=== PATIENT | female | born 1970 | race African-American/Black ===

== ENCOUNTER 2016-11-30 18:25 | Emergency (ER) | payer BC, OTHER ==
[~2016-11-30] VITALS: Ht 167.6 cm; Wt 136.1 kg
--- NOTE | 2016-11-30 19:19 | ED Lower Extremity ---
General Chief Complaint: Lower Extremity Stated Complaint: LT LEG PAIN Nursing Triage Note: PT CO OF L CALF AREA SWELLING AND TENDERNESS FROM DOG BITE ON 11/15/16. PT WAS SEEN BY [facility] ON 11/15/16. Nursing Sepsis Screen: No Definite Risk History of Present Illness Time seen by provider: 19:12 Initial Comments Patient presents to ER with a chief complaint of pain and swelling her left lower leg. She says she had a dog bite on November 15, 2016. She was treated with antibiotics by her doctor and animal control collected the dog and took him into custody for a few weeks. She has not heard anything different about the dog. She finished her antibiotics and was doing well before the past 1-2 days she's had progressively worsening pain and swelling in her left leg especially on the left lateral side. She is not having problems with numbness or tingling or inability to walk or have falls. She is not having any shortness of breath or heart racing. Pain is 9 out of 10 and she has used 3 Aleve tablets just prior to coming in. She is not feeling Aleve is helping. Allergies and Home Medications Allergies Coded Allergies: No Known Drug Allergies (Unverified , 11/30/16) Home Medications No Active Prescriptions or Reported Meds Constitutional: No chills, No diaphoresis, No fever Respiratory: No cough, No dyspnea on exertion, No short of breath Cardiovascular: No chest pain, No palpitations Gastrointestinal: No constipation, No diarrhea, No nausea, No vomiting Genitourinary: No discharge, No dysuria Musculoskeletal: see HPI, No joint swelling Skin: No pruritus, No rash Other Left calf measures 59 cm and right calf measures 55 cm in greatest circumference Past Znjrqwl-Jmdivc-Dfymcs Hx Patient Social History Alcohol Use: Occasionally Uses Recreational Drug Use: No Smoking Status: Current Everyday Smoker Type Used: Cigarettes Recent Foreign Travel: No Contact w/Someone Who Travel: No Recent Infectious Disease Expo: No Recent Hopitalizations: No Immunizations Up To Date Tetanus Booster (TDap): Less than 5yrs Physical Exam Vital Signs Vital Sign - Last 12Hours 11/30/16 18:50 Temp 97.2 Pulse 73 Resp 18 B/P (MAP) 146/83 Pulse Ox 99 Capillary Refill : Less Than 3 Seconds General Appearance: WD/WN, mild distress HEENT: PERRL/EOMI, pharynx normal Cardiovascular: normal peripheral pulses, regular rate, rhythm Respiratory: chest non-tender, lungs clear Gastrointestinal: non tender, soft Legs: right leg non-tender, right leg normal inspection, right leg normal range of motion, right leg no evidence of injury, left leg pain, left leg soft tissue tenderness, left leg swelling Knees: bilateral knee non-tender, bilateral knee normal inspection, bilateral knee normal range of motion Ankles: bilateral ankle non-tender, bilateral ankle normal inspection, bilateral ankle normal range of motion, bilateral ankle no evidence of injury Neurologic/Tendon: normal sensation, normal motor functions, normal tendon functions, responds to pain Neurologic/Psychiatric: no motor/sensory deficits, alert, oriented x 3 Skin: normal color, warm/dry, other (dry healing lesion from where the dog bite without any palpable induration or drainage. On the left calf laterally) Progress/Results/Core Measures Results/Orders My Orders Orders - LUIS ENRIQUE ARREAGA Us Venous Lower Ext Lt (11/30/16 19:20) Fentanyl Injection (Sublimaze Injection (11/30/16 19:20) Vital Signs/I&O Vital Sign - Last 12Hours 11/30/16 18:50 Temp 97.2 Pulse 73 Resp 18 B/P (MAP) 146/83 Pulse Ox 99 Blood Pressure Mean: 104 Progress Note : Time: 19:25 Progress Note Cellulitis versus DVT. We'll obtain ultrasound get her some pain control and extend her antibiotics another week. She should start probiotics. Diagnostic Imaging Diagonstic Imaging: Ultrasound Plain Films/CT/US/NM/MRI: leg (left lower) Comments VIA [facility]. [place], [place] NAME: CHINA ELLIOTT [facility] REC#: [id number] PT STATUS: REG ER : 1970 PHYSICIAN: LUIS ENRIQUE ARREAGA MD ADMIT DATE: 11/30/16/ER Draft Date of Exam:11/30/16 US VENOUS LOWER EXT LT PROCEDURE: US left lower extremity venous. TECHNIQUE: Multiple real-time grayscale images were obtained over the left lower extremity in various projections. Additional duplex Doppler and color Doppler images were also obtained. INDICATION: Left leg pain. The femoropopliteal deep venous system widely patent. No deep or superficial thrombi identified. IMPRESSION: Negative Dictated on workstation # [id number] Dict: 11/30/162023 Trans: 11/30/162034 PENDING SALE TO [facility] [id number] Interpreted by: SHUN MAYA Electronically signed by: Reviewed: Reviewed by Me Departure Impression Impression: Primary Impression: Left leg pain Disposition: 01 HOME, SELF-CARE Condition: Improved Departure-Patient Inst. Decision time for Depature: 21:41 Referrals: NO,LOCAL PHYSICIAN (PCP/Family) Primary Care Physician Patient Instructions: Cellulitis (Skin Infection), Adult (DC) Add. Discharge Instructions: You do not have a clot in your leg. However you may still have residual cellulitis so we will extend your antibiotics by another 5 days. Follow-up with your primary care physician tomorrow or the following day if it's not getting better. If you're having new symptoms such as fever or shortness of breath you should return to the ER. Keep the leg elevated above the level of your heart when possible. Apply ice to the swelling parts to control your pain. Use ibuprofen 800 mg by mouth every 8 hours as needed. Use Tylenol 1000 mg every 8 hours as needed. If all these measures does not control your pain then you may take one tablet of the hydrocodone every 6 hours as needed to control your pain. All discharge instructions reviewed with patient and/or family. Voiced understanding. Scripts Cephalexin (Keflex) 500 Mg Capsule 500 MG PO QID for 5 Days, #20 CAP 0 Refills Prov: LUIS ENRIQUE ARREAGA 11/30/16 Hydrocodone/Acetaminophen (Hydrocodon -Acetaminophen 5-325) 1 Each Tablet 1 EACH PO Q6H Y for BREAKTHROUGH PAIN, #10 TAB 0 Refills Prov: LUIS ENRIQUE ARREAGA 11/30/16 LUIS ENRIQUE ARREAGA Nov 30, 2016 19:19
[2016-11-30] MEDS ORDERED: fentaNYL INJECTION 100 MCG/2 ML AMP INJ STA (19:20)
--- NOTE | 2016-11-30 20:35 | Diagnostic Imaging Report ---
PROCEDURE: US left lower extremity venous. TECHNIQUE: Multiple real-time grayscale images were obtained over the left lower extremity in various projections. Additional duplex Doppler and color Doppler images were also obtained. INDICATION: Left leg pain. The femoropopliteal deep venous system widely patent. No deep or superficial thrombi identified. IMPRESSION: Negative Dictated by: Dictated on workstation # [id number]
[2016-11-30] MEDS ORDERED: HYDR-3812 PO (21:45)
[2016-11-30] MEDS ORDERED: CEPH-507 PO (21:45)
[2016-11-30] MEDS ORDERED: RX-CEPHALEXIN (KEFLEX) 250 MG CAP PPK#4 PO STA (21:46)
[2016-11-30 21:54] VITALS: BP 131/71
--- OUTSIDE RECORDS SUMMARY | 2016-12-11 11:35 | XMS REPORT | Continuity of Care Document ---
Author Author [facility] Address Unknown Phone Unavailable Allergies Medications Problems Procedures Results Encounters ACCT No. Visit Date/Time Discharge Status Pt. Type Provider Facility Loc./Unit Complaint [id number] 05/20/2013 12:46:23 05/20/2013 23: 59:59 CLS Outpatient Ino Guadarrama
== END 2016-11-30 21:54 | disposition home or self-care (01) ==
LOC: ER 18:30
DX: M79.604 Pain in right leg (principal); F17.210 Nicotine dependence, cigarettes, uncomplicated
CPT/HCPCS: 96372; 99284